=== PATIENT | male | born 1985 | race Caucasian/White ===

== ENCOUNTER 2021-04-26 13:14 | Emergency (ER) | payer OTHER, SELFPAY ==
--- NOTE | ~2021-04-26 | XR_ITS ---
XR abdomen/kub 1V 04/26/2021 13:53 INDICATION: Flank pain TECHNIQUE: KUB COMPARISON: None FINDINGS: Bowel gas pattern is normal. There is no evidence of free air, mass, organomegaly, ascites or obstruction. No abnormal calculi are seen. The bones appear intact. IMPRESSION: 1: No acute abdominal abnormality identified. Reviewed, dictated and finalized at location B.
[2021-04-26 13:30] VITALS: BP 142/85; PULSE 94; RESP 18; TEMP 36.8; O2SAT 100
--- NOTE | 2021-04-26 13:38 | ED.GENADULT ---
HPI - General Adult General Chief complaint: Urogenital-Male Stated complaint: Blood in urine Time Seen by Provider: 04/26/21 13:30 Source: patient and RN notes reviewed Mode of arrival: ambulatory Limitations: no limitations History of Present Illness HPI narrative: 35-year-old male presents with complaints of dysuria and left lower abdominal pain for 1 day. ?Jony reports awakening today with blood in urine, had a similar episode 3 weeks ago, symptoms subsided on their own. ?Dysuria consists of burning, and pressure). ?No treatment.? Denies fever or chills. ?Abdominal pain without nausea and vomiting. ?No genital discharge.? No concerns for STDs. ?No flank pain.? Exacerbating factors urinating.? Denies genital ?bleeding.? Tolerating liquids well.? Remains active. ?The patient reports he has not been diagnosed with COVID-19. ?The patient reports he received 2 Moderna COVID-19 vaccines. ?The patient reports he is not waiting for the results of a COVID-19 lab test. ?The patient reports he does not have chills, weakness, or fatigue. ?The patient reports he does not have a new or worsening cough or shortness of breath. ?Denies chest pain. ?The patient reports he does not have any rhinorrhea, congestion, loss of taste or smell, sore throat, and diarrhea. ?Denies recent traveling. ?Denies concerns for COVID-19 or exposures. ?At this time, the patient is not suspected of having COVID-19. Some parts of this dictation were generated by voice recognition software and may contain typographical and/or grammatical inaccuracies. Related Data Home Medications Medication Instructions Recorded Confirmed No Home Medications 04/26/21 04/26/21 Allergies Allergy/AdvReac Type Severity Reaction Status Date / Time iodine Allergy Unknown Other Verified 03/24/19 11:02 Cat Dander Allergy Mild SNEEZING Uncoded 11/30/18 14:59 Review of Systems Review of Systems: Narrative: CONSTITUTIONAL: Denies fever, chills, sweats. EYES: Denies visual changes, redness, discharge. ENT: Denies rhinorrhea, congestion, sore throat, otalgia. CARDIOVASCULAR: Denies chest pain, palpitations, edema. RESPIRATORY: Denies dyspnea, wheezing, cough. GASTROINTESTINAL: Complains of LLQ abdominal pain. Denies nausea, vomiting, diarrhea. GENITOURINARY: Complains of dysuria (burning, pressure), hematuria. Denies urgency, abnormal discharge. SKIN: Denies rash or itching. MUSCULOSKELETAL: Denies acute back pain, joint pain, or myalgia. NEUROLOGIC: Denies numbness or focal weakness. PSYCHIATRIC: Denies anxiety or depression. All other systems reviewed are negative, except as documented in HPI and below. PMFSH Past Medical History Medical History (Updated 04/26/21 @ 14:14 by SUKUMAR Damon) Spontaneous pneumothorax X3 Surgical History Surgical History (Updated 04/26/21 @ 13:53 by SUKUMAR Damon) History of chest tube placement X3 Family History Family History (Updated 04/26/21 @ 13:53 by SUKUMAR Damon) Father Unknown family medical history Mother Unknown family medical history Social History Social History (Updated 04/26/21 @ 13:56 by SUKUMAR Damon) Smoking status: Former smoker Tobacco type: cigarettes Second hand tobacco smoke exposure: No Smoking end date: 11/06/18 Alcohol intake: current Substance use: current Living arrangements: with family Occupation/Education: occupation Gender identity (if verbalized by the patient): Male Sexual Orientation (if Verbalized by the Patient): Straight or Heterosexual Comments At time of signature, agree with the nurse past medical, surgical, social, and family history.? There is no relevant family history pertinent to the presenting complaint. Exam Narrative: Exam Narrative: GENERAL: This is a well-nourished, well-developed patient, in no apparent distress.? Talks in full sentences and ambulates with steady gait without dyspnea. HEAD: Normocephalic, atraumatic.
== END 2021-04-26 14:18 | disposition home or self-care (01) ==
PROVIDERS: Emergency Provider Nurse Practitioner Family; PCP Family Medicine
DX: R30.0 Dysuria (principal); Z87.891 Personal history of nicotine dependence
CPT/HCPCS: 74018; 81003; 87086; 99213; G0463

== ENCOUNTER 2025-05-06 10:24 | Emergency (ER) | payer SELFPAY ==
--- NOTE | ~2025-05-06 | XR_ITS ---
HISTORY: LT 3rd finger dip injury-mallet finger today COMPARISON: None TECHNIQUE: 2 views of the left third digit were performed FINDINGS: No acute or subacute fracture. Joint spaces are preserved and alignment is maintained. Soft tissues are unremarkable without radiopaque foreign body or significant calcification. Age-appropriate mineralization. IMPRESSION: No acute fracture or dislocation. Reviewed, dictated and finalized at location A.
--- OUTSIDE RECORDS SUMMARY | 2025-05-06 10:26 | XMS_ITS | Clinical Summary ---
Author Organization [facility] [place] Address [address] [place] [address] Care Team Providers Care Veneer Sheet Repairer Name Role Phone Poonam Monahan MD Primary Care Provider [phone] Allergies Active Allergy Reactions Criticality Noted Date Comments Bupropion Hcl Other (See Comments) 07/06/2024 Severe mood swings Escitalopram Other (See Comments) 07/06/2024 Suicidal thoughts Povidone-Iodine Rash Low 12/09/2018 Sertraline Other (See Comments) 07/06/2024 Suicidal thoughts Medications atomoxetine (Strattera) 40 mg capsuleIndication s:Attention deficit hyperactivity disorder (ADHD), predominantly inattentive type Take 1 Capsule (40 mg) by mouth see administration instructions. 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 The patient underwent the [employer] My Risk Genetic Testing for Hereditary Cancer Syndromes due to a personal history of a renal cell cancer which was diagnosed at age 35. He also has a personal history of 3 episodes of pneumothorax. 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 The patient has Vfra-Jmna-Vlqe Syndrome syndrome (BHDS). The patient underwent the [employer] Risk Genetic Testing for Hereditary Cancer Syndromes due to a personal history of a renal cell cancer which was diagnosed at age 35. He also has a personal history of 3 episodes of pneumothorax. 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 March 2020 Resolved Problems Problem Noted Date Diagnosed Date Resolved Date Renal cell carcinoma of left kidney 12/09/2021 07/06/2024 Hematuria 05/04/2021 07/06/2024 Left renal mass 05/04/2021 07/06/2024 Hyponatremia 05/04/2021 07/06/2024 Collapse of right lung 07/06 Encounters Date Type Department Care Team Description 04/04/2025 External Device Data [facility] ABSTRACTION Provider, Abstract 04/04/2025 External Device Data [facility] ABSTRACTION Provider, Abstract 03/24/2025 1:00 PM CDT Office Visit [facility] [place] [facility] [place] [address] [place] [address] Poonam Monahan MD Situational mixed anxiety and depressive disorder (Primary Dx) 03/23/2025 External Device Data [facility] ABSTRACTION Provider, Abstract 03/22/2025 External Device Data [facility] ABSTRACTION Provider, Abstract 02/14/2025 External Device Data [facility] ABSTRACTION Provider, Abstract from Last 3 Months Immunizations Immunization Administration Dates Next Due (TIME PLUS Q)(12 YR UP) COVID-19 VACCINE - EMERGENCY USE AUTHORIZATION, MRNA, [id number]) 30 MCG/0.3 ML IM SUSP 02/01/2021,01/11/2021 Family History Medical History Relation Name Comments Unknown Father Heart Disease Maternal Aunt 1 Healthy Mother Unknown Paternal Grandfather Unknown Paternal Grandmother Relation Name Status Comments Brother Daughter Alive Father Alive Half-Brother 1 Alive Half-Brother 2 Alive Maternal Aunt 1 Maternal Aunt 2 Alive Maternal Aunt 3 Alive Maternal Grandfather Alive Maternal Grandmother Alive Maternal Uncle 1 Alive Maternal Uncle 2 Alive Mother Alive Paternal Grandfather Paternal Grandmother Sister Alive Social History Tobacco Use Types Packs/Day Years Used Date Smoking Tobacco: Former Cigarettes 0.3 15 0 03/25/2004 - 03/25/2019 Smokeless Tobacco: Never Tobacco Cessation:Counseling Given: Yes Alcohol Use Standard Drinks/Week Comments Yes 0 (1 standard drink = 0.6 oz pur e alcohol) 1 drink in 2-3 weeks Feeling Safe Answer Date Recorded Within the last year, have y ou been afraid of your partner or ex-partner? No 03/24/2019 Within the last year, have y ou been humiliated or emotionally abused in other ways by your partner or ex-partner? No Within the last year, have y ou been kicked, hit, slapped, or otherwise physically hurt by your partner or ex-partner? No 03/24/2019 Within the last year, have y ou been raped or forced to have any kind of sexual activity by your partner or ex-partner? No 03/24/2019 Social Connections Answer Date Recorded In a typical week, how many times do you talk on the phone with family, friends, or neighbors? Patient declined 03/24/2019 How often do you get togethe r with friends or relatives? Patient declined 03/24/2019 How often do you attend christianity or confucianist serv ices? Patient declined 03/24/2019 Do you belong to any clubs o r organizations such as christianity groups, unions, fraternal or athletic groups, or school groups? Patient declined 03/24/2019 How often do you attend meet ings of the clubs or organizations you belong to? Patient declined 03/24/2019 Are you , , di vorced, , never , or living with a partner? 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 Gender Identity Not on file Sexual Orientation Not on file Last Filed Vital Signs Vital Sign Reading Time Taken Comments Blood Pressure 118/72 03/24/2025 12:50 PM CDT Pulse 112 03/24/2025 12:50 PM CDT Temperature 36.4 C (97.6 F) 03/24/2025 12:50 PM CDT Respiratory Rate 18 03/24/2025 12:50 PM CDT Oxygen Saturation 97% 03/24/2025 12:50 PM CDT Inhaled Oxygen Concentration - - Weight 94.3 kg (208 lb) 03/24/2025 12:50 PM CDT Height 190.5 cm (6' 3) 03/24/2025 12:50 PM CDT Body Mass Index 26 03/24/2025 12:50 PM CDT Plan of Treatment Upcoming Encounters Date Type Department Care Team (Late st Contact Info) Description 12/25/2025 1:10 PM FIREPROOF DOOR ASSEMBLER Office Visit [facility] [place] [facility] at the [facility] Medicine [address] [place] [address] Alberto Guardado MD [address] [place] [address] Health Maintenance Due Date Last Done Comments Pre-Diabetes and Diabetes Screening 1987 DTAP/TDAP/TD VACCINES (1 - Tdap) 2006 HEPATITIS B VACCINES (1 of 3 - 19+ 3-dose series) 2006 COVID-19 Vaccine ( - 2023-2 5 season) 2024 02/01/2021, 01/11/2021 Preventative Visit- Commercial 11/02/2024 INFLUENZA VACCINE (#1) 2025 09/20/2008 HPV VACCINES Aged Out No longer eligi ble based on patient's age to complete this topic Medical Devices Implanted Type Area Cardiology Technician Device Identifier Shelf Expiration Date Model / Serial / Lot Hemostat Fabricio Surg Mph Pwd 3gm [id number] - [id number] Implanted:Qt y: 1 on 05/14/2021 by Alberto Guardado MD at [facility] Hemostatic Left: Abdomen CR [employer] [id number] 02/27/2026 [id number] / / [id number] Insurance [employer] OPEN ACCESS [employer] * Guarantor: [employer] Account Type Relation to Patient Date of Phone Billing Address Corporate Employer ATTN: ADIA CONNELLY [address] OPEN ACCESS * Guarantor: [employer] Account Type Relation to Patient Date of Phone Billing Address Corporate Employer ATTN: JAMES ROSALES [address] [address] Advance Directives For more information, please contact: [phone] * Full Code (Latest Code Status on File) Date Activated Date Inactivated Comments 05/14/2021 8:45 PM 05/15/2021 8:18 PM * Full Code Date Activated Date Inactivated Comments 05/14/2021 2:23 PM 05/14/2021 8:45 PM * Full Code Date Activated Date Inactivated Comments 05/04/2021 12:53 AM 05/04/2021 7:40 PM * Full Code Date Activated Date Inactivated Comments 03/25/2019 4:58 PM 03/28/2019 8:48 PM * Full Code Date Activated Date Inactivated Comments 03/24/2019 5:54 PM 03/25/2019 4:58 PM Care Teams Veneer Sheet Repairer Relationship Specialty Start Date End Date Poonam Monahan MD [address] [place] [id number] PCP - General Internal Medicine 07/06/24
--- OUTSIDE RECORDS SUMMARY | 2025-05-06 10:26 | XMS_ITS ---
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 The patient underwent the [employer] My Risk Genetic Testing for Hereditary Cancer Syndromes due to a personal history of a renal cell cancer which was diagnosed at age 35. He also has a personal history of 3 episodes of pneumothorax. 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 The patient has Rush-Bqzu-Kndt Syndrome syndrome (BHDS). The patient underwent the [employer] [place] My Risk Genetic Testing for Hereditary Cancer Syndromes due to a personal history of a renal cell cancer which was diagnosed at age 35. He also has a personal history of 3 episodes of pneumothorax. 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 March 2020 Current Treatment and Therapy Plans No current plan information found. Past Treatment and Therapy Plans No past plan information found. Lifetime Dose Tracking * Chemical Lifetime Dose Automatic Entry Manual Entr y Effective Dose 127.98 mSv 127.98 mSv 0 mSv Total DLP 6,788.83 DLP 6,788.83 DLP 0 DLP CTDIvol Max 81.86 mGy 81.86 mGy 0 mGy CTDIvol Min 48.05 mGy 48.05 mGy 0 mGy Resolved Problems Problem Noted Date Diagnosed Date Resolved Date Renal cell carcinoma of left kidney 12/09/2021 07/06/2024 Hematuria 05/04/2021 07/06/2024 Left renal mass 05/04/2021 07/06/2024 Hyponatremia 05/04/2021 07/06/2024 Collapse of right lung 07/06
--- OUTSIDE RECORDS SUMMARY | 2025-05-06 10:26 | XMS_ITS | Clinical Summary ---
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 Gender Identity Not on file Sexual Orientation Not on file Plan of Treatment Health Maintenance Due Date Last Done Comments Hepatitis C Virus (HCV) Screening 1987 TdaP Immunization 1987 Hepatitis B Immunization (1 of 3 - 19+ 3-dose series) 2006 Influenza Immunization (#1) 2024 09/04/2020 SARS-COV-2 Immunization (2023- season) 2024 02/01/2021, 01/11/2021 Respiratory Syncytial Virus (RSV) Immunization (Adult) (1 - 1-dose 75+ series) 2062 Meningococcal Immunization (ACWY) Aged Out No longer eligible b ased on patient's age to complete this topic Pneumococcal Immunization Combined Aged Out No longer eligible b ased on patient's age to complete this topic Rotavirus Immunization Aged Out No lo nger eligible based on patient's age to complete this topic
--- NOTE | 2025-05-06 10:30 | ED.UPPEXIN ---
HPI - Extremity Injury (Upper) General Chief Complaint: Extremity Injury, Upper Stated Complaint: finger injury Time Seen by Provider: 05/06/25 10:35 Source: patient Mode of arrival: ambulatory Limitations: no limitations History of Present Illness HPI narrative: Jony is a 39-year-old male patient presenting to the clinic today with a left 3rd finger injury. He reports he was cleaning the seat of his car and his finger got stuck and now he is unable to extend the D IP joint of the left 3rd finger. Is having pain over the D IP joint. Pain with passive extension of the finger. Rates pain 3/10. Has not taken anything for pain. Related Data Home Medications ?Medication ?Instructions ?Recorded ?Confirmed ?Last Taken ?Type No Home Medications 04/26/21 04/26/21 Unknown History Allergies Allergy/AdvReac Type Severity Reaction Status Date / Time iodine Allergy Unknown Other Verified 05/06/25 10:34 Cat Dander Allergy Mild SNEEZING Uncoded 11/30/18 14:59 Review of Systems Review of Systems: Pertinent positives per HPI. Patient denies any fever, chills, rash, headache, visual changes, dizziness, cough, runny nose, sore throat, shortness of breath, chest pain, palpitations, nausea, vomiting, diarrhea, constipation, abdominal pain, or any urinary issues. PMFSH Past Medical History Medical History Spontaneous pneumothorax X3 Surgical History Surgical History History of chest tube placement X3 Family History Family History Father Unknown family medical history Mother Unknown family medical history Social History Social History Smoking status: Former smoker Tobacco type: cigarettes Second hand tobacco smoke exposure: No Smoking end date: 11/06/18 Alcohol intake: current Substance use: current Living arrangements: with family Occupation/Education: occupation Gender identity (if verbalized by the patient): Male Sexual Orientation (if Verbalized by the Patient): Straight or Heterosexual Comments At the time of my signature, I reviewed and agree with the nursing past medical, surgical, social, and family history. There is no relevant family history pertinent to the patient complaint. Exam Narrative: General: Well-developed, well nourished, in no apparent distress Head: Normocephalic, atraumatic. Cardio: Regular rate and rhythm, s1 and s2 normal, no murmur appreciated. Resp: Clear to auscultation bilaterally, no rhonchi, rales, wheezing or rubs. Musculoskeletal: No deformity, mallet finger to left 3rd dip joint,unable to extend dip joint actively, pain with passive ROM, tender to palpation over the dip joint, muscle strength strong and equal, peripheral pulse strong, no edema, no cyanosis, normal gait and station Course Course Emergency Course: Portions of this record may have been created with voice recognition software. Level of Care: Express Care Visit Vital Signs Vital signs: Vital Signs Temperature 36.8 C 05/06/25 10:32 Pulse Rate 74 05/06/25 10:32 Respiratory Rate 16 05/06/25 10:32 Blood Pressure 137/88 05/06/25 10:32 Pulse Oximetry 98 05/06/25 10:32 Oxygen Delivery Room Air 05/06/25 10:32 Temperature 36.8 C 05/06/25 10:32 Pulse Rate 74 05/06/25 10:32 Respiratory Rate 16 05/06/25 10:32 Blood Pressure 137/88 05/06/25 10:32 Pulse Oximetry 98 05/06/25 10:32 Oxygen Delivery Room Air 05/06/25 10:32 Vital signs reviewed MDM - Extremity Injury (Upper) MDM Narrative Medical decision making narrative: At the time of visit patient is resting comfortably on the exam table. Patient appears to be nontoxic. Diagnostics: X-ray of the left 3rd finger was negative for any sign of fracture or malalignment of the left thrid finger-foreign body (bb) to the left thumb Plan: I suspect patient has 3rd distal mallet finger. Recommend follow-up with Dr. Viera-call on Thursday to schedule appointment. Finger splint was applied. Supportive measures were discussed with the patient and they voiced understanding discharge instructions and agrees to treatment plan. Return precautions reviewed Differential Diagnosis Differential diagnosis: Likely finger sprain, dislocation of finger and other (Mallet finger/tendon injury, contusion, soft tissue injury) Discharge Plan Discharge Clinical Impression: Mallet deformity of left middle finger Patient Disposition: Home Condition: Stable Instructions: Antibiotic Form, Jammed Finger (ED) Additional Instructions: X-rays negative for any sign of fracture or malalignment. I suspect you have a mallet finger- injury to the extensor tendon of the left 3rd finger dip joint. Wear metal finger splint as directed Rest, ice, and elevate May take Tylenol/ibuprofen as needed for pain Follow-up with Dr. Viera-call on Thursday to schedule appointment Patient Language: Maltese Prescriptions: No Action No Home Medications Follow-up/Referrals: Caren Viera MD [Physician] - 2 Days (Mallet finger- left 3rd finger) PHYSICIAN,PREASSEMBLER AND INSPECTOR [Primary Care Provider] - Time of Disposition: 10:57 Quality NIHSS Nursing Documentation ED NIHSS nursing documentation: reviewed/agree
[2025-05-06 10:32] VITALS: BP 137/88; PULSE 74; RESP 16; TEMP 36.8; O2SAT 98
== END 2025-05-06 11:01 | disposition home or self-care (01) ==
PROVIDERS: Emergency Provider Nurse Practitioner Family; Referring Provider Emergency Medicine
DX: M20.012 Mallet finger of left finger(s) (principal); Z87.891 Personal history of nicotine dependence; Z85.528 Personal history of other malignant neoplasm of kidney
CPT/HCPCS: 29130; 73140; 99213; G0463